=== PATIENT | female | born 1930 | race Caucasian/White ===

== ENCOUNTER 2017-06-06 06:40 | Inpatient (IN) | payer MEDICARE ==
[~2017-06-06] VITALS: Ht 162.6 cm; Wt 57.3 kg
--- NOTE | ~2017-06-06 | CN ---
Consultation Report [facility] [address] [place]. [address] NAME: RYLAND TARANGO : [birth year] STATUS : ADM IN [facility]#: [id number] AGE: 86 ADM/REG DATE : 06/06/17 MR#: [id number] REPORT SERV DATE: 06/06/17 DICTATED BY: MARCELLE HUBBARD DATE: 06/06/17 REPORT STATUS : Draft TRANSCRIBED BY: MODRohith DATE: 06/06/17 CONSULTATION DATE OF CONSULTATION: 06/06/2017 LOCATION: Bed 6104. REASON FOR CONSULTATION: I am asked to see this lady with GI bleeding. HISTORY OF PRESENT ILLNESS: This 86-year-old woman has a history of deep venous thrombosis and is being maintained on the liquids. Recent complaints have included nausea, vomiting, and diarrhea, possibly with melanotic stools, and possibly with hematemesis. She has noted weakness and fatigue. She currently denies chest pain or shortness of breath. REVIEW OF SYSTEMS: General review of systems are otherwise unremarkable. PHYSICAL EXAMINATION: CHEST: Clear. CARDIAC: Regular rhythm. ABDOMEN: Soft and nontender. Bowel sounds normal. No palpable mass. LABORATORY DATA: Lab work on admission showed a hemoglobin of 6.5, with a white count of 12,000. INR was 1.8. BUN 34, and creatinine 0.6. IMPRESSION: Gastrointestinal bleed with melena, question upper gastrointestinal source. PLAN: Possible panendoscopy, Dr. Covington will follow. Thank you for allowing me to see this lady. YASMEEN/MAE Marcelle Hubbard M.D. / [id number] CC: DO Shukri Milligan M.D.
--- NOTE | ~2017-06-06 | EGD ---
EGD REPORT [facility] [address] [place] [address] NAME: RYLAND KEENAN : 32 STATUS : ADM IN PAT#: [id number] AGE: 86 ADM/REG DATE : 06/06/17 MR#: [id number] REPORT SERV DATE: 06/07/17 DICTATED BY: HOLLI BECK DATE: 06/07/17 REPORT STATUS : Draft TRANSCRIBED BY: [facility] DATE: 06/07/17 Endoscopy Center Patient Name: Ryland Keenan Date of : 1930 Attending MD: HOLLI BECK MD Procedure Date No Time: 06/07/2017 Procedure: Upper GI endoscopy Indications: Acute post hemorrhagic anemia, Iron deficiency anemia secondary to chronic blood loss, Melena Referring MD: Shukri GR MD, MYRTLE COVARRUBIAS JR., AGNES MCKAY MD Medicines: Propofol per Anesthesia Complications: No immediate complications. Estimated blood loss: None. Procedure: Pre-Anesthesia Assessment: - After reviewing the risks and benefits, the patient was deemed in satisfactory condition to undergo the procedure. - Prior to the procedure, a History and Physical was performed, and patient medications and allergies were reviewed. The patient's tolerance of previous anesthesia was also reviewed. The risks and benefits of the procedure and the sedation options and risks were discussed with the patient. All questions were answered, and informed consent was obtained. Prior Anticoagulants: The patient has taken Eliquis, last dose was 2 days prior to procedure. ASA Grade Assessment: III - A patient with severe systemic disease. After reviewing the risks and benefits, the patient was deemed in satisfactory condition to undergo the procedure. After obtaining informed consent, the endoscope was passed under direct vision. Throughout the procedure, the patient's blood pressure, pulse, and oxygen saturations were monitored continuously. The GIF [id number] was introduced through the mouth, and advanced to the third part of duodenum. The upper GI endoscopy was accomplished without difficulty. The patient tolerated the procedure well. Findings: The examined esophagus was normal. A 1 cm hiatus hernia was present. A very small amount of bright red blood was seen in the body of the stomach and refluxing through the pylorus from the duodenum. Once this was irrigated and suctioned, no active bleeding or bleeding lesion was seen. EGD REPORT [place] [id number] [facility] [place]. [address] NAME: RYLAND KEENAN : [birth year] STATUS : ADM IN [facility]#: [id number] AGE: 86 ADM/REG DATE : 06/06/17 MR#: [id number] REPORT SERV DATE: 06/07/17 DICTATED BY: HOLLI BECK DATE: 06/07/17 REPORT STATUS : Draft TRANSCRIBED BY: [facility] DATE: 06/07/17 The entire examined stomach and gastroesophageal junction (on retroflexion) were normal. The examined duodenum was normal although there was 1-2 cc of fresh red blood in the bulb initially. Once the area was irrigated and suctioned there was no evidence of active bleeding or any bleeding lesion. Impression: - Normal esophagus. - Hiatus hernia. - Normal stomach and gastroesophageal junction. - Normal examined duodenum. - Non-erosive esophageal reflux (NERD) disease present. - Self-limited UGIB on Eliquis without obvious mucosal abnormality raising the question of a Dieulafoy's lesion. Recommendation: - [facility] to [facility]. - Return to previous diet. - Continue present medications. - Discontinue Protonix infusion and begin Protonix 40 mg by mouth daily. - Would not resume Eliquis. - If no futher clinically significant bleeding in 5 days, would favor oral warfarin with close monitoring of INR on therapy. - Agree with plans for IVC filter. - No need for repeat colonoscopy as last done July 2015. - Will be available as needed. Procedure Code(s): --- Professional --- 94521, Esophagogastroduodenoscopy, flexible, transoral; diagnostic, including collection of specimen(s) by brushing or washing, when performed (separate procedure) Diagnosis Code(s): --- Professional --- K44.9, Diaphragmatic hernia without obstruction or gangrene K21.9, Gastro-esophageal reflux disease without esophagitis D62, Acute posthemorrhagic anemia D50.0, Iron deficiency anemia secondary to blood loss (chronic) K92.1, Melena CPT copyright 2013 [employer]. All rights reserved. The codes documented in this report are preliminary and upon cell stripper final review may EGD REPORT [facility] [address] [place] [address] NAME: RYLAND KEENAN : [birth year] STATUS : ADM IN [facility]#: [id number] AGE: 86 ADM/REG DATE : 06/06/17 MR#: [id number] REPORT SERV DATE: 06/07/17 DICTATED BY: HOLLI BECK. DATE: 06/07/17 REPORT STATUS : Draft TRANSCRIBED BY: [employer] DATE: 06/07/17 be revised to meet current compliance requirements. HOLLI BECK MD 06/07/2017 2:49 PM This report has been signed electronically. Number of Addenda: 0 Note Initiated On: 06/07/2017 2:08 PM Scope Withdrawal Time 0 hours 0 minutes 0 seconds [address] [place] [address]
--- NOTE | ~2017-06-06 | DS ---
Discharge Summary [facility] [address] [place]. [address] NAME: YRLAND TARANGO : 32 STATUS : DIS IN PAT#: [id number] AGE: 86 ADM/REG DATE : 06/06/17 MR#: [id number] REPORT SERV DATE: 06/12/17 DICTATED BY: MALCOLM LEDESMA DATE: 06/11/17 REPORT STATUS : Draft TRANSCRIBED BY: MODL DATE: 06/11/17 ADMISSION DATE: 06/06/2017 DISCHARGE DATE: 06/11/2017 DISCHARGE DIAGNOSES: Include 1. Gastrointestinal bleed. 2. Anemia of acute blood loss. 3. Acute left lower extremity deep vein thrombosis. 4. Mild hyponatremia. 5. A history of atrial fibrillation but currently in sinus rhythm. 6. Chronic diastolic heart failure. 7. History of recent left hip repair, 03/2017. 8. History of cerebrovascular accident. 9. History of blindness in the left eye. DISCHARGE MEDICATIONS: Discharge medicines are as follows: Lipitor 5 mg at bedtime; vitamin D3 one capsule, 10,000 units every Wednesday; coenzyme Q10, 100 mg daily; Fosamax 70 mg weekly; Lovenox 60 mg twice a day to bridge while on Coumadin to receive an INR up to 2.0; Lasix 20 mg twice a day at 8 a.m. and 4 p.m.; multivitamin one tablet daily; Toprol-XL 50 mg daily; Prilosec 40 mg daily; prednisone 3 mg daily; Tylenol 500 to 1000 mg twice a day p.r.n. for pain; Coumadin 5 mg to begin today nightly with a PT and INR in the a.m.; [place] 5/325 one tablet every four hours p.r.n.; Cozaar 100 mg daily; Slow FE iron tablet daily; PreserVision capsule twice a day; magnesium oxide 400 mg daily; Klor-Con 10 mEq twice a day; Imdur 30 mg daily; and Norvasc 2.5 mg daily. HISTORY OF PRESENT ILLNESS: An 86-year-old female who presented with nausea with emesis coffee ground and lab work was ordered and followed closely. The patient was given PPI therapy along with replacement with packed red blood cells given the fact of the severe anemia found on admission and also consults were placed to Gastroenterology, Dr. Mendel Alejandro and Dr. Fox Covington. PROCEDURES AND IMAGING DURING THIS ADMISSION: Include a CT of abdomen and pelvis performed on 06/06/2017 showing no bowel obstruction, no bowel wall inflammation, some diverticula but no acute diverticulitis, and atrophic kidneys but otherwise within normal limit CT scan. Venous Doppler ultrasound of the lower extremities showing no evidence for acute right lower extremity; however, there is an acute DVT involving the left iliac vein and left common femoral vein. An upper GI endoscopy that was performed on 06/07/2017 showing a normal-examined esophagus, a 1-cm hiatal hernia, and very small amount of bright red blood seen at the body of stomach and refluxing through the pylorus to the duodenum. Once this was irrigated and suctioned, no active bleeding or bleeding lesion was seen. The stomach and gastroesophageal junction normal and nonerosive esophageal reflux was seen. Recommendations were not to resume Eliquis but would favor starting anticoagulation with Coumadin instead and also recommendation for placement of IVC filter given the superior Discharge Summary [address] [address] NAME: RYLAND TARANGO : 32 STATUS : DIS IN PAT#: [id number] AGE: 86 ADM/REG DATE : 06/06/17 MR#: [id number] REPORT SERV DATE: 06/12/17 DICTATED BY: MALCOLM LEDESMA DATE: 06/11/17 REPORT STATUS : Draft TRANSCRIBED BY: MAE DATE: 06/11/17 clots. HOSPITAL COURSE: After admission, the patient was seen by Dr. Jose Carranza who followed her post transfusion and her anemia began improving with H and H increasing from 6.5 and 19.7 up to 8.4 and 25.4. She was seen by Gastroenterology and underwent the above-described upper GI endoscopy. She underwent the CT scan as described as well. Afterwards, recovered well, was given one additional unit of packed red blood cells with good response. Her H and H climbed to 9.0 and 27.7. She was then sent for placement of IVC filter which she tolerated well. She was mobilized and evaluated by Physical Therapy who recommended penitentiary facility at discharge. She was then initiated on a Lovenox bridge with anticipation of starting Coumadin at discharge, and she was evaluated and approved for [facility] and felt safe for discharge there on 06/11/2017. Most recent lab work showing sodium 130, potassium 4.2, BUN 11, and creatinine 0.41, white blood cells 10.4, hemoglobin 9.1, and hematocrit 27.3. I have updated the patient and the patient's family extensively at bedside, questions were answered. Greater than 30 minutes was spent on this discharge for medication teaching, followup planning, and further disposition. My collaborative physician is Dr. Malcolm Ledesma. CSC/MODL Yefri Martin, ELLIOTT Malcolm Ledesma MD / [id number] CC: MD Shukri Roblero M.D.
--- NOTE | ~2017-06-06 | HP ---
History And Physical [place] [address] [facility] [place]. [address] NAME: RYLAND TARANGO : [birth year] STATUS : ADM [facility]#: [id number] AGE: 86 ADM/REG DATE : 06/06/17 MR#: [id number] REPORT SERV DATE: 06/06/17 DICTATED BY: ELISA ZAMORANO DATE: 06/06/17 REPORT STATUS : Draft TRANSCRIBED BY: MODL DATE: 06/06/17 DATE OF ADMISSION: 06/06/2017 HISTORY OF PRESENT ILLNESS: This is an unfortunate 86-year-old, female, recently suffered left hip fracture with left nail fixation due to traumatic fall mid 03/2017, atrial fibrillation, RVR, history of CAD with PCI, severe diastolic dysfunction with aortic outflow obstruction LVEF 58% last three months echo, as well as hypertension, nausea, mitral valve regurgitation secondary rheumatic fever, history of GERD, history of stroke. The patient recently was diagnosed with left lower extremity DVT end of 04/2017, was placed on Eliquis, unclear if that was a transition from Eliquis with hip ORIF, reversed Coumadin. The patient over the past few days has been having increased abdominal bloating, some black tarry stools. Then had significant nausea with emesis that was actually coffee-grounds per the family. The patient wants to be a full code. She asked her and her said yes full code. The patient's hemoglobin here is 6.5, 12.6 white count. Endorses no fevers, no chills. No diarrhea. No chest pain or chest pressure. No shortness of breath. REVIEW OF SYSTEMS: A 10-point review of systems done, see HPI. Otherwise, negative. I would like to note the patient's blood pressure when I walked in was 85, however, the ER says it was 115/59, but then was rechecked and was 108 systolic thankfully; there are no IMCU beds available per Intake. PAST MEDICAL HISTORY: See above. PAST SURGICAL HISTORY: See above including cholecystectomy, tonsillectomy, PCI, esophageal dilation. ALLERGIES: CIPRO, UNCLEAR REACTION. HOME MEDICATIONS: See MAR. Continue what is relevant. FAMILY HISTORY: Hypertension in at least one parent. Mother of old age in her 90s. Father's siblings with CAD. SOCIAL HISTORY: No tobacco, alcohol, drug use. PHYSICAL EXAMINATION: VITAL SIGNS: Blood pressure 108 systolic from 85 from 115. Afebrile. Respirations 16, pulse 81. GENERAL: Guarded. HEENT: PERRLA. No scleral icterus. CARDIOVASCULAR: Regular rate and rhythm. No murmur. RESPIRATORY: Decreased breath sounds bibasilar. ABDOMEN: Tenderness to palpation, more periumbilical and hypogastric. No rebound tenderness. No peritoneal signs. EXTREMITIES: No edema. No ecchymosis. History And Physical [address] [place]. [address] NAME: RYLAND TARANGO : 32 STATUS : ADM IN [facility]#: [id number] AGE: 86 ADM/REG DATE : 06/06/17 MR#: [id number] REPORT SERV DATE: 06/06/17 DICTATED BY: ELISA ZAMORANO DATE: 06/06/17 REPORT STATUS : Draft TRANSCRIBED BY: MODRohith DATE: 06/06/17 NEUROLOGIC: GCS 15. A and O x4 out of 4. PSYCHIATRIC: Mildly anxious. LABORATORY DATA: White count 12.6, hemoglobin 6.5, platelets 204,000, potassium 3.7, bicarb 26, creatinine 0.86, sugar 134. INR 1.8. LVEF 58% last echo. CT abdomen and pelvis is pending. She has a chest x-ray and KUB that are pending. I will read the chest x-ray myself; appears to be under-inspired lungs, some bilateral parenchymal infiltration, seems to be persistent from prior, a little better from prior chest x-ray, bibasilar alveolar infiltration, better from prior. ASSESSMENT AND PLAN: 1. Upper GI and likely lower GI bleed given coffee-grounds emesis and then melena in the presence of Eliquis. 2. History of DVT in the left lower extremity 04/2017. Likely needs an IVC filter once she is endoscopically repaired. 3. History of atrial fibrillation. 4. History of stroke and CAD with PCI. 5. 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 6. Acute blood loss anemia. 7. I prefer this patient go to the [facility], but there are no beds available per report. The patient is not unstable enough to warrant ICU; however, she is full code. In the interim, we will get a PICC. Give Protonix 80 IV total and then Protonix drip 8 mg an hour. Give her 2 units PRBCs each over four hours each with Bumex before and after the 2nd unit given her diastolic dysfunction. Give her FFP regarding her INR 1.8, this possibly mildly influenced by Eliquis. We will also set her up for a consideration for IVC filter after endoscopic will hopefully repair. Dr. Covington has already been called regarding this patient. 8. The patient as well will be placed on her home dose amiodarone. I do not have MAR in front of me. We will get bilateral lower extremity ultrasound for DVT. Given her SIRS criteria, place empirically on Zosyn after panculture. All questions were answered. It took well over 60 minutes to do. Reference [employer] and [employer]. WST/MODL Elisa Zamorano DO / [id number] CC: DO Shukri Milligan M.D.
[~2017-06-06 06:40] MED LIST: ACET500CAP PO; ASA5GR PO; ASAB PO; ASAEC PO; CALCIUM PO; CENTRUM PO; CENTRUM TAB1 TAB PO; CO Q-10100 MG PO; CORDARONE PO; COZAAR100 MG PO; EVISTA60 PO; EXFORGE1 TA3 PO; EXFORGE1 TAB PO; FOSAMAX70 MG PO; HALF81 PO; IMDUR30 PO; KLOR-CON 1010 MEQ PO; KLOR-CON M1010 MEQ PO; L20 PO; LIPITOR10 PO; LIPITOR20 PO; MACROBID PO; MAGOX4 PO; MAX25 PO; MAXIMUM D3 PO; MULTIVIT/MIN PO; MUSCLE RU3 TOP; NITROSTAT0.4 MG SL; NORV25 PO; PENVK250 PO; PRAVACHOL40 MG PO; PRESERVISION A1 EACH PO; PRILOSEC40 MG PO; SLO-NIACIN500 MG PO; SLOW FE IRON PO; TOPROL XL200 MG PO; TOPXL100 PO; TOPXL50 PO; TYLENOL ARTH650 MG PO; Z300 PO; ZETIA PO; ZINC PO
[2017-06-06 07:42] LABS: BASOPHILS 0.2 %; BASOPHILS ABSOLUTE 0.03 10/3/uL (0.0-0.16); EOSINOPHILS 0.1 %; EOSINOPHILS ABSOLUTE 0.01 10/3/uL (0.0-0.53); ER CBC TAT 0 Hrs 05 Mins; IMMATURE GRANULOCYTES 3.6 %; IMMATURE GRANULOCYTES ABSOLUTE 0.46 10/3/uL (0.0-0.11); LYMPHOCYTES 6.6 %; LYMPHOCYTES ABSOLUTE 0.83 10/3/uL (0.67-4.30); MEAN CORPUSCULAR HEMOGLOB 27.8 pg (26.0-34.0); MEAN CORPUSCULAR VOLUME 84.2 fL (80-100); MEAN PLATELET VOLUME 10.1 fL (9.2-13.0); MONOCYTES 8.4 %; MONOCYTES ABSOLUTE 1.06 10/3/uL (0.21-1.20); NEUTROPHILS 81.1 %; NEUTROPHILS ABSOLUTE 10.24 10/3/uL (2.02-8.40); PLATELET COUNT 204 10/3/uL (150-400); RBC DISTRIBUTION WIDTH 16.8 % (12.0-16.0); WHITE BLOOD CELLS 12.6 10/3/uL (4.5-10.5)
[2017-06-06 07:48] LABS: HEMATOCRIT 19.7 % (36.0-48.0); HEMOGLOBIN 6.5 g/dL (12.0-16.0); MANUAL DIFF NO %; RED CELL COUNT 2.34 10/6/uL (4.0-5.6)
[2017-06-06 07:52] LABS: INTERNATIONAL NORMAL RATI 1.8 UNITS (-); PROTIME (NOT ORD) 20.4 SEC (12.0-14.5)
[2017-06-06 07:56] LABS: A/G RATIO 0.9 (0.7-1.9); ALBUMIN 2.7 G/DL (3.5-5.0); CALCIUM, SERUM 8.1 MG/DL (8.5-10.4); CHLORIDE, SERUM 98 MMOL/L (96-112); CO2 (CARBON DIOXIDE) 26 MMOL/L (24-34); CREATININE 0.86 MG/DL (0.55-1.02); GFR AFRICAN AMERICAN 71 ML/MIN (>=60); GFR NON AFRICAN AMERICAN 62 ML/MIN (>=60); POTASSIUM, SERUM 3.7 MMOL/L (3.5-5.3); SGOT(AST) 23 U/L (5-40); SGPT(ALT) 36 U/L (5-65); SODIUM, SERUM 130 MMOL/L (135-148); TOTAL BILIRUBIN 0.4 MG/DL (0-1.2); TOTAL PROTEIN 5.7 G/DL (6.0-8.5)
[2017-06-06 07:57] LABS: ALKALINE PHOSPHATASE 82 U/L (45-117); BUN (BLOOD UREA NITROGEN) 34 MG/DL (6-23); GLUCOSE, SERUM 134 MG/DL (60-99)
[2017-06-06] MEDS ORDERED: FOSAMAX70 MG PO (09:50)
[2017-06-06] MEDS ORDERED: THERGRANM PO (09:50)
[2017-06-06] MEDS ORDERED: P1 PO (09:50)
[2017-06-06] MEDS ORDERED: ELIQUIS 5 MG TAB5 MG PO (09:51)
[2017-06-06] MEDS ORDERED: ACET500CAP PO (09:51)
[2017-06-06 13:22] LABS: BASOPHILS 0.2 %; BASOPHILS ABSOLUTE 0.02 10/3/uL (0.0-0.16); EOSINOPHILS 0.2 %; EOSINOPHILS ABSOLUTE 0.02 10/3/uL (0.0-0.53); HEMOGLOBIN 7.5 g/dL (12.0-16.0); IMMATURE GRANULOCYTES 3.1 %; IMMATURE GRANULOCYTES ABSOLUTE 0.39 10/3/uL (0.0-0.11); LYMPHOCYTES 9.8 %; LYMPHOCYTES ABSOLUTE 1.25 10/3/uL (0.67-4.30); MEAN CORPUS HGB CONC 32.9 g/dL (32.0-36.0); MEAN CORPUSCULAR HEMOGLOB 28.3 pg (26.0-34.0); MEAN PLATELET VOLUME 10.3 fL (9.2-13.0); MONOCYTES 8.8 %; MONOCYTES ABSOLUTE 1.13 10/3/uL (0.21-1.20); NEUTROPHILS 77.9 %; NEUTROPHILS ABSOLUTE 9.96 10/3/uL (2.02-8.40); PLATELET COUNT 184 10/3/uL (150-400); RBC DISTRIBUTION WIDTH 16.9 % (12.0-16.0); RED CELL COUNT 2.65 10/6/uL (4.0-5.6); WHITE BLOOD CELLS 12.8 10/3/uL (4.5-10.5)
[2017-06-06 13:25] LABS: HEMATOCRIT 22.8 % (36.0-48.0)
[2017-06-06 13:26] LABS: MANUAL DIFF NO %
[2017-06-06 13:45] LABS: A/G RATIO 0.9 (0.7-1.9); ALBUMIN 2.5 G/DL (3.5-5.0); ALKALINE PHOSPHATASE 76 U/L (45-117); BUN (BLOOD UREA NITROGEN) 30 MG/DL (6-23); CALCIUM, SERUM 7.6 MG/DL (8.5-10.4); CHLORIDE, SERUM 97 MMOL/L (96-112); CO2 (CARBON DIOXIDE) 27 MMOL/L (24-34); CREATININE 0.65 MG/DL (0.55-1.02); GFR AFRICAN AMERICAN 94 ML/MIN (>=60); GFR NON AFRICAN AMERICAN 81 ML/MIN (>=60); GLOBULIN 2.8 G/DL (2.5-4.1); GLUCOSE, SERUM 104 MG/DL (60-99); PHOSPHORUS, SERUM 2.9 MG/DL (2.5-4.5); POTASSIUM, SERUM 3.9 MMOL/L (3.5-5.3); SGOT(AST) 23 U/L (5-40); SGPT(ALT) 30 U/L (5-65); SODIUM, SERUM 130 MMOL/L (135-148); TOTAL BILIRUBIN 0.8 MG/DL (0-1.2); TOTAL PROTEIN 5.3 G/DL (6.0-8.5); TROPONIN I 0.03 NG/ML (<0.05)
[2017-06-06 14:00] LABS: PROCALCITONIN 0.07 ng/mL (<0.5)
[2017-06-06 15:42] LABS: B NATRIURETIC PEPTIDE (BNP) 390.9 PG/ML (< 100.0)
[2017-06-07 04:47] LABS: HEMATOCRIT 25.4 % (36.0-48.0); HEMOGLOBIN 8.4 g/dL (12.0-16.0); MANUAL DIFF YES %; MEAN CORPUS HGB CONC 33.1 g/dL (32.0-36.0); MEAN CORPUSCULAR HEMOGLOB 28.8 pg (26.0-34.0); MEAN PLATELET VOLUME 10.8 fL (9.2-13.0); PLATELET COUNT 164 10/3/uL (150-400); RED CELL COUNT 2.92 10/6/uL (4.0-5.6)
[2017-06-07 04:56] LABS: BUN (BLOOD UREA NITROGEN) 20 MG/DL (6-23); CALCIUM, SERUM 7.3 MG/DL (8.5-10.4); CHLORIDE, SERUM 102 MMOL/L (96-112); CO2 (CARBON DIOXIDE) 27 MMOL/L (24-34); CREATININE 0.83 MG/DL (0.55-1.02); GFR AFRICAN AMERICAN 75 ML/MIN (>=60); GFR NON AFRICAN AMERICAN 64 ML/MIN (>=60); GLUCOSE, SERUM 97 MG/DL (60-99); PHOSPHORUS, SERUM 2.4 MG/DL (2.5-4.5); POTASSIUM, SERUM 3.6 MMOL/L (3.5-5.3); SODIUM, SERUM 137 MMOL/L (135-148)
[2017-06-07 06:52] LABS: ANISOCYTOSIS 1+ (5-10/OIF) (0-5/OIF); BAND NEUTROPHILS 4 %; BASOPHILS 2 %; BASOPHILS ABSOLUTE (CALC) 0.24 10/3/uL (0.0-0.16); EOSINOPHILS 1 %; EOSINOPHILS ABSOLUTE (CALC) 0.12 10/3/uL (0.0-0.53); IMMATURE GRANS ABSOLUTE (CALC) 0.24 10/3/uL (0.0-0.11); LYMPHOCYTES 8 %; LYMPHOCYTES ABSOLUTE (CALC) 0.96 10/3/uL (0.67-4.30); METAMYELOCYTES 2 %; MONOCYTES 3 %; MONOCYTES ABSOLUTE (CALC) 0.36 10/3/uL (0.21-1.20); NEUTROPHILS ABSOLUTE (CALC) 10.08 10/3/uL (2.02-8.40); PLATELET ESTIMATE ADQ (ADEQUATE); POLYCHROMASIA 1+ (2-5/OIF) (0-1/OIF); SEGMENTED NEUTROPHIL (0) 80 %; TOTAL NUCLEATED CELLS 100
[2017-06-07 07:18] LABS: ASCORBIC ACID (UR NOT ORDER) NEG (NEG); BILIRUBIN, URINE NEGATIVE (NEG); KETONE, URINE NEGATIVE (NEG); LEUKOCYTE ESTERASE(NOT OR TRACE (NEG); WBC (NOT ORDERED) (RFLEX) 4 (0-5)
[2017-06-07 07:30] LABS: GLYCOHEMOGLOBIN (HbA1c) 5.3 % (4.7-6.1)
[2017-06-07 10:11] LABS: HEMATOCRIT 24.9 % (36.0-48.0); HEMOGLOBIN 8.3 g/dL (12.0-16.0)
[2017-06-07 22:04] LABS: HEMOGLOBIN 7.5 g/dL (12.0-16.0)
[2017-06-07 22:05] LABS: HEMATOCRIT 22.6 % (36.0-48.0)
[2017-06-08 05:17] LABS: BASOPHILS 0.2 %; BASOPHILS ABSOLUTE 0.02 10/3/uL (0.0-0.16); EOSINOPHILS 1.6 %; EOSINOPHILS ABSOLUTE 0.13 10/3/uL (0.0-0.53); HEMATOCRIT 22.6 % (36.0-48.0); HEMOGLOBIN 7.4 g/dL (12.0-16.0); IMMATURE GRANULOCYTES 2.8 %; IMMATURE GRANULOCYTES ABSOLUTE 0.23 10/3/uL (0.0-0.11); LYMPHOCYTES 7.1 %; LYMPHOCYTES ABSOLUTE 0.59 10/3/uL (0.67-4.30); MEAN CORPUS HGB CONC 32.7 g/dL (32.0-36.0); MEAN CORPUSCULAR HEMOGLOB 29.1 pg (26.0-34.0); MEAN PLATELET VOLUME 10.4 fL (9.2-13.0); MONOCYTES 11.4 %; MONOCYTES ABSOLUTE 0.94 10/3/uL (0.21-1.20); NEUTROPHILS 76.9 %; NEUTROPHILS ABSOLUTE 6.35 10/3/uL (2.02-8.40); PLATELET COUNT 141 10/3/uL (150-400); RBC DISTRIBUTION WIDTH 17.8 % (12.0-16.0); RED CELL COUNT 2.54 10/6/uL (4.0-5.6); WHITE BLOOD CELLS 8.3 10/3/uL (4.5-10.5)
[2017-06-08 05:19] LABS: MANUAL DIFF NO %
[2017-06-08 05:24] LABS: CALCIUM, SERUM 7.2 MG/DL (8.5-10.4); CHLORIDE, SERUM 103 MMOL/L (96-112); CO2 (CARBON DIOXIDE) 27 MMOL/L (24-34); CREATININE 0.69 MG/DL (0.55-1.02); GFR AFRICAN AMERICAN 92 ML/MIN (>=60); GFR NON AFRICAN AMERICAN 79 ML/MIN (>=60); GLUCOSE, SERUM 88 MG/DL (60-99); PHOSPHORUS, SERUM 2.3 MG/DL (2.5-4.5); POTASSIUM, SERUM 3.1 MMOL/L (3.5-5.3); SODIUM, SERUM 138 MMOL/L (135-148)
[2017-06-08 05:25] LABS: BUN (BLOOD UREA NITROGEN) 13 MG/DL (6-23)
[2017-06-09 06:57] LABS: BASOPHILS 0.2 %; BASOPHILS ABSOLUTE 0.02 10/3/uL (0.0-0.16); EOSINOPHILS 0.4 %; EOSINOPHILS ABSOLUTE 0.04 10/3/uL (0.0-0.53); IMMATURE GRANULOCYTES 1.3 %; IMMATURE GRANULOCYTES ABSOLUTE 0.15 10/3/uL (0.0-0.11); LYMPHOCYTES 3.9 %; LYMPHOCYTES ABSOLUTE 0.44 10/3/uL (0.67-4.30); MEAN CORPUS HGB CONC 32.5 g/dL (32.0-36.0); MEAN CORPUSCULAR HEMOGLOB 28.8 pg (26.0-34.0); MEAN CORPUSCULAR VOLUME 88.8 fL (80-100); MEAN PLATELET VOLUME 10.8 fL (9.2-13.0); MONOCYTES 10.8 %; MONOCYTES ABSOLUTE 1.22 10/3/uL (0.21-1.20); NEUTROPHILS 83.4 %; NEUTROPHILS ABSOLUTE 9.42 10/3/uL (2.02-8.40); PLATELET COUNT 150 10/3/uL (150-400); RBC DISTRIBUTION WIDTH 18.8 % (12.0-16.0); WHITE BLOOD CELLS 11.3 10/3/uL (4.5-10.5)
[2017-06-09 07:00] LABS: HEMATOCRIT 27.7 % (36.0-48.0); MANUAL DIFF NO %; RED CELL COUNT 3.12 10/6/uL (4.0-5.6)
[2017-06-09 07:09] LABS: CHLORIDE, SERUM 101 MMOL/L (96-112); CO2 (CARBON DIOXIDE) 28 MMOL/L (24-34); GFR AFRICAN AMERICAN 102 ML/MIN (>=60); GFR NON AFRICAN AMERICAN 88 ML/MIN (>=60); GLUCOSE, SERUM 96 MG/DL (60-99); PHOSPHORUS, SERUM 2.4 MG/DL (2.5-4.5); POTASSIUM, SERUM 3.6 MMOL/L (3.5-5.3); SODIUM, SERUM 136 MMOL/L (135-148)
[2017-06-09 07:10] LABS: BUN (BLOOD UREA NITROGEN) 8 MG/DL (6-23)
[2017-06-10 04:33] LABS: BASOPHILS 0.2 %; BASOPHILS ABSOLUTE 0.02 10/3/uL (0.0-0.16); EOSINOPHILS 0.3 %; EOSINOPHILS ABSOLUTE 0.04 10/3/uL (0.0-0.53); HEMATOCRIT 28.2 % (36.0-48.0); HEMOGLOBIN 9.2 g/dL (12.0-16.0); IMMATURE GRANULOCYTES 1.1 %; IMMATURE GRANULOCYTES ABSOLUTE 0.13 10/3/uL (0.0-0.11); LYMPHOCYTES 6.5 %; MANUAL DIFF NO %; MEAN CORPUS HGB CONC 32.6 g/dL (32.0-36.0); MEAN CORPUSCULAR HEMOGLOB 28.9 pg (26.0-34.0); MEAN CORPUSCULAR VOLUME 88.7 fL (80-100); MEAN PLATELET VOLUME 10.6 fL (9.2-13.0); MONOCYTES 13.4 %; MONOCYTES ABSOLUTE 1.64 10/3/uL (0.21-1.20); NEUTROPHILS 78.5 %; PLATELET COUNT 147 10/3/uL (150-400); RBC DISTRIBUTION WIDTH 18.5 % (12.0-16.0); RED CELL COUNT 3.18 10/6/uL (4.0-5.6); WHITE BLOOD CELLS 12.2 10/3/uL (4.5-10.5)
[2017-06-10 04:48] LABS: CALCIUM, SERUM 8.2 MG/DL (8.5-10.4); CHLORIDE, SERUM 97 MMOL/L (96-112); CO2 (CARBON DIOXIDE) 27 MMOL/L (24-34); CREATININE 0.52 MG/DL (0.55-1.02); GFR AFRICAN AMERICAN 101 ML/MIN (>=60); GFR NON AFRICAN AMERICAN 87 ML/MIN (>=60); GLUCOSE, SERUM 100 MG/DL (60-99); PHOSPHORUS, SERUM 2.6 MG/DL (2.5-4.5); POTASSIUM, SERUM 3.7 MMOL/L (3.5-5.3); SODIUM, SERUM 131 MMOL/L (135-148)
[2017-06-10 04:50] LABS: BUN (BLOOD UREA NITROGEN) 12 MG/DL (6-23)
[2017-06-11 06:45] LABS: BASOPHILS 0.2 %; BASOPHILS ABSOLUTE 0.02 10/3/uL (0.0-0.16); EOSINOPHILS 0.9 %; EOSINOPHILS ABSOLUTE 0.09 10/3/uL (0.0-0.53); HEMATOCRIT 27.3 % (36.0-48.0); HEMOGLOBIN 9.1 g/dL (12.0-16.0); IMMATURE GRANULOCYTES 1.1 %; IMMATURE GRANULOCYTES ABSOLUTE 0.11 10/3/uL (0.0-0.11); LYMPHOCYTES 6.3 %; LYMPHOCYTES ABSOLUTE 0.65 10/3/uL (0.67-4.30); MEAN CORPUS HGB CONC 33.3 g/dL (32.0-36.0); MEAN CORPUSCULAR HEMOGLOB 29.3 pg (26.0-34.0); MEAN CORPUSCULAR VOLUME 87.8 fL (80-100); MEAN PLATELET VOLUME 10.8 fL (9.2-13.0); MONOCYTES 14.5 %; MONOCYTES ABSOLUTE 1.51 10/3/uL (0.21-1.20); NEUTROPHILS ABSOLUTE 8.02 10/3/uL (2.02-8.40); PLATELET COUNT 167 10/3/uL (150-400); RBC DISTRIBUTION WIDTH 17.9 % (12.0-16.0); RED CELL COUNT 3.11 10/6/uL (4.0-5.6); WHITE BLOOD CELLS 10.4 10/3/uL (4.5-10.5)
[2017-06-11 06:46] LABS: INTERNATIONAL NORMAL RATI 1.4 UNITS (-)
[2017-06-11 06:47] LABS: MANUAL DIFF NO %
[2017-06-11 06:48] LABS: PROTIME (NOT ORD) 17.3 SEC (12.0-14.5)
[2017-06-11 06:51] LABS: BUN (BLOOD UREA NITROGEN) 11 MG/DL (6-23); CALCIUM, SERUM 8.4 MG/DL (8.5-10.4); CHLORIDE, SERUM 95 MMOL/L (96-112); CO2 (CARBON DIOXIDE) 28 MMOL/L (24-34); CREATININE 0.41 MG/DL (0.55-1.02); GFR AFRICAN AMERICAN 109 ML/MIN (>=60); GFR NON AFRICAN AMERICAN 94 ML/MIN (>=60); GLUCOSE, SERUM 104 MG/DL (60-99); PHOSPHORUS, SERUM 3.1 MG/DL (2.5-4.5); POTASSIUM, SERUM 4.2 MMOL/L (3.5-5.3); SODIUM, SERUM 130 MMOL/L (135-148)
== END 2017-06-11 16:08 | DRG 357 ==
LOC: ER 06:40 → 6NO 10:12
PROVIDERS: Emergency Medicine; Hospitalist; Internal Medicine
PROC: 30233N1 Transfusion of Nonautologous Red Blood Cells into Peripheral Vein, Percutaneous Approach (ICD-10-PCS; principal; 2017-06-06)
PROC: 30233K1 Transfusion of Nonautologous Frozen Plasma into Peripheral Vein, Percutaneous Approach (ICD-10-PCS; 2017-06-06)
PROC: 02HV33Z Insertion of Infusion Device into Superior Vena Cava, Percutaneous Approach (ICD-10-PCS; 2017-06-06)
PROC: 0DJ08ZZ Inspection of Upper Intestinal Tract, Via Natural or Artificial Opening Endoscopic (ICD-10-PCS; 2017-06-07)
PROC: 06H03DZ Insertion of Intraluminal Device into Inferior Vena Cava, Percutaneous Approach (ICD-10-PCS; 2017-06-08)
DX: K92.0 Hematemesis (principal); I82.422 Acute embolism and thrombosis of left iliac vein; I82.412 Acute embolism and thrombosis of left femoral vein; I50.32 Chronic diastolic (congestive) heart failure; E87.1 Hypo-osmolality and hyponatremia; D62 Acute posthemorrhagic anemia; I25.10 Atherosclerotic heart disease of native coronary artery without angina pectoris; K57.30 Diverticulosis of large intestine without perforation or abscess without bleeding; K44.9 Diaphragmatic hernia without obstruction or gangrene; I05.1 Rheumatic mitral insufficiency; K21.9 Gastro-esophageal reflux disease without esophagitis; H54.42 Blindness, left eye, normal vision right eye; I48.2 Chronic atrial fibrillation; I69.398 Other sequelae of cerebral infarction; S72.002D Fracture of unspecified part of neck of left femur, subsequent encounter for closed fracture with routine healing; W19.XXXD Unspecified fall, subsequent encounter; Z86.718 Personal history of other venous thrombosis and embolism; Z95.5 Presence of coronary angioplasty implant and graft; Z79.02 Long term (current) use of antithrombotics/antiplatelets; Z82.49 Family history of ischemic heart disease and other diseases of the circulatory system; Z90.49 Acquired absence of other specified parts of digestive tract; Z88.1 Allergy status to other antibiotic agents
CPT/HCPCS: 36415; 36430; 36569; 37191; 71010; 74000; 74176; 80048; 80053; 81001; 82962; 83036; 83605; 83735; 83880; 84100; 84145; 84443; 84484; 85014; 85018; 85025; 85610; 85730; 86850; 86900; 86901; 86920; 87040; 87449; 93005; 93970; 94640; 94762; 96374; 96375; 97161-GP; 97530-GP; 99152; 99153; 99285; A9270-GY; C1751; C1769; C9113; G8978-CL-GP; G8979-CK-GP; J2250; J2405; J2543; J3010; P9016; P9059